=== PATIENT | male | born 1965 | race African-American/Black ===

== ENCOUNTER → 2018-05-17 | Day surgery (SDC) | payer OTHER ==
[~2018-05-17] MED LIST: CIALIS5 MG PO; FENTANYL CITRATE/PF 100MCG/2 ML INJ ONE; FLOMAX0.4 MG PO; MIDAZOLAM HCL 2 MG/2 ML VIAL ONE; PANTOPRAZOLE SO40 MG PO; PROPOFOL IV EMULSION 10 MG/ML 50 ML VIAL ONE
--- OUTSIDE RECORDS SUMMARY | 2018-05-17 07:36 | XMS REPORT | Clinical Summary ---
Author Author [facility] Address Unknown Phone Unavailable Care Team Providers Care Opener Tender Name Role Phone Asked, No Pcp PCP Unavailable Allergies No Known Allergies Medications End Date Status Medication Sig Dispensed Refills Start Date Active pantoprazole (PROTONIX) TK 1 T PO 2 40 MG EC tablet QAM 6 Active CIALIS 5 mg tablet TK 1 T PO QD 30 tablet 11 8 Active tamsulosin (FLOMAX) 0.4 Take 1 90 capsule 3 mg capsule,extended capsule (0.4 8 release 24hr mg total) by mouth daily. Active tamsulosin (FLOMAX) 0.4 TAKE ONE 30 capsule 0 mg capsule CAPSULE BY 8 MOUTH DAILY Active VIAGRA 100 mg TAKE 1 TABLET 10 tablet 0 tabletIndications: BY MOUTH 8 Erectile dysfunction, NEEDED FOR unspecified erectile ERECTILE dysfunction type DYSFUNCFTION FOR UP TO 10 DOSES 09/04/2017 Discontinued alfuzosin (UROXATRAL) 10 TK 1 T PO QD 3 mg 24 hr tablet WITH THE SAME 6 MEAL 09/04/2017 Discontinued CIALIS 5 mg tablet TK 1 T PO QD 0 6 09/04/2017 Discontinued VIAGRA 100 mg Take 1 tablet 10 tablet 3 tabletIndications: (100 mg 7 Erectile dysfunction, total) by unspecified erectile mouth as dysfunction type needed for erectile dysfunction for up to 10 doses. 09/04/2017 Discontinued tamsulosin (FLOMAX) 0.4 TAKE 1 30 capsule 0 mg capsule,extended CAPSULE(0.4 8 release 24hr MG) BY MOUTH DAILY 10/04/2017 sildenafil, Take 1 tablet 90 tablet 11 antihypertensive, (20 mg total) 8 (REVATIO) 20 mg tablet by mouth 3 (three) times a day for 30 days. 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 Encounters Care Team Description Date Type Specialty Abdon Bonds MD Erectile dysfunction, unspecified erectile dysfunction type 10/22/2017 Refill Urology Abdon Bonds MD BPH with obstruction/lower urinary tract symptoms (Primary Dx) 09/04/2017 Office Visit Urology after 05/16/2017 Social History Date Tobacco Use Types Packs/Day Years Used Never Smoker Smokeless Tobacco: Never Used Tobacco Cessation: Counseling Given: No Alcohol Use Drinks/Week oz/Week Comments Yes Sex Assigned at Date Recorded Not on file Industry Job Start Date Occupation Not on file Not on file Not on file Travel End Travel History Travel Start No recent travel history available. Last Filed Vital Signs Time Taken Vital Sign Reading 09/04/2017 11:55 AM CDT Blood Pressure 113/68 09/04/2017 11:55 AM CDT Pulse 65 - Temperature - - Respiratory Rate - - Oxygen Saturation - - Inhaled Oxygen - Concentration 09/04/2017 11:55 AM CDT Weight 81.6 kg (180 lb) - Height - 09/04/2017 11:55 AM CDT Body Mass Index 23.11 Plan of Treatment Health Maintenance Due Date Last Done Comments COLON CANCER SCREENING 09/29/2013 SHINGLES VACCINES (#1) 09/29/2013 INFLUENZA VACCINE 10/11/2017 Results Not on fileafter 05/16/2017 Insurance Payer Benefit Subscriber ID Type Phone Address Plan / Group BCBS BCBS xxxxxxxxxxxx PPO CHOICE PPO/[employer] PPO Advance Directives Patient has advance care planning documents on file. For more information, tamar rojas contact: Fortino Chiu [address] [place] [address]
[2018-05-17 10:30] VITALS: BP 105/72
== END | disposition home or self-care (01) ==
LOC: OR 07:33
PROVIDERS: ATTEND Internal Medicine Gastroenterology
DX: K29.70 Gastritis, unspecified, without bleeding (principal); D12.3 Benign neoplasm of transverse colon; K20.9 Esophagitis, unspecified; K21.9 Gastro-esophageal reflux disease without esophagitis; K57.30 Diverticulosis of large intestine without perforation or abscess without bleeding; K64.8 Other hemorrhoids; K44.9 Diaphragmatic hernia without obstruction or gangrene; E73.9 Lactose intolerance, unspecified; Z80.0 Family history of malignant neoplasm of digestive organs
CPT/HCPCS: 43239; 45385; 93005; J2250; J2704; 45384